=== PATIENT | male | born 1935 | race Caucasian/White ===

== ENCOUNTER → 2021-09-08 | Outpatient (REF) ==
--- NOTE | 2021-09-08 12:01 | Diagnostic Imaging Report ---
Indication: History of work, now for medical surveillance. Findings: Sternal wires midline, the heart size normal. There is no failure, effusion or pneumothorax. No findings of pneumonia. Impression: No acute-appearing abnormality. Dictated by: Dictated on workstation # [id number]
== END | disposition home or self-care (01) ==
LOC: OCC 10:37
PROVIDERS: ATTEND Family Medicine
DX: Z01.818 Encounter for other preprocedural examination (principal)
CPT/HCPCS: 71045